=== PATIENT | female | born 1965 | race Caucasian/White ===

== ENCOUNTER 2019-07-30 12:46 | Day surgery (SDC) | payer MEDICAID ==
[~2019-07-30] VITALS: Ht 165.1 cm; Wt 77.3 kg
[2019-07-30 14:37] LABS: INR 1.09 (0.85-1.17); PROTIME 13.6 SECONDS (11.6-15.0)
[2019-07-30 14:39] LABS: ANION GAP 11.7 mmol/L (8-16); CARBON DIOXIDE 26.8 mmol/L (21.0-32.0); CREATININE - SERUM 1.1 mg/dL (0.6-1.3); POTASSIUM - SERUM 3.5 mmol/L (3.5-5.1)
[2019-07-30 14:44] LABS: BASOPHILS 0.3 % (0-2); EOSINOPHILS 3.7 % (0-7); HEMATOCRIT 42.6 % (36.0-48.0); HEMOGLOBIN 13.7 g/dL (12-16); IMMATURE GRANULOCYTES 0.1 % (0-5); LYMPHOCYTES 26.1 % (15-50); MCH 29.3 pg (26.0-34.0); MCHC 32.2 g/dL (31.0-37.0); MEAN PLATELET VOLUME 12.9 fL (7.4-10.4); NEUTROPHILS 64.8 % (40-80); PLATELET COUNT 177 10x3/uL (130-400); RBC 4.68 10x6/uL (4.00-5.40); RDW 14.5 % (11.5-14.5); WBC 8.8 10x3/uL (4.8-10.8)
[2019-07-30 14:45] LABS: BILIRUBIN - TOTAL 0.58 mg/dL (0.2-1.3); MAGNESIUM - SERUM 1.6 mg/dL (1.8-2.4); PROTEIN - SERUM 7.7 g/dL (6.4-8.2)
--- NOTE | 2019-07-30 15:19 | NUR ---
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
[2019-07-30 18:00] VITALS: BP 145/87
--- NOTE | 2019-07-30 18:04 | NUR ---
RECEIVED PATIENT FROM OR, ALERT AND ORIENTED VIA BED. NO C/O PAIN. NO S/S OF ACUTE DISTRESS NOTED. VITALS STABLE. ORIF OF LEFT WRIST, DRESSING C/D/I. DENIES ANY NEEDS AT THIS TIME. CALL LIGHT IN REACH. WILL CONTINUE TO MONITOR.
--- NOTE | 2019-07-30 19:37 | NUR ---
UP IN BED WITH TV ON, ABLE TO VOICE ALL NEEDS. IV TO RIGHT AC IS INFUSING PER ORDERS. DENIES PAIN AT THIS TIME. WILL NOTE ANY CHANGE.
[2019-07-30] MEDS ORDERED: LISINOPRIL10 MG PO (19:50)
[2019-07-30] MEDS ORDERED: LEVOTHYROXINE100 MCG PO (19:51)
[2019-07-30] MEDS ORDERED: METOPROLOL TART50 MG PO (19:51)
[2019-07-30] MEDS ORDERED: LIPITOR20 MG PO (19:51)
[2019-07-30] MEDS ORDERED: HYDROCODON-ACE1 EA10 PO (19:52)
[2019-07-30] MEDS ORDERED: ZOLOFT100 MG PO (19:53)
[2019-07-30] MEDS ORDERED: XANAX1 MG PO (19:53)
[2019-07-30 20:25] VITALS: BP 133/78
[2019-07-30 23:07] VITALS: BP 133/78; BMI 28.3
[2019-07-31 00:20] VITALS: BP 141/67
--- NOTE | 2019-07-31 02:18 | NUR ---
COMPLAINTS OF PAIN TO WRIST, MEDICATION GIVEN PER ORDERS. WILL NOTE ANY CHANGE.
[2019-07-31 03:56] VITALS: BP 158/74
[2019-07-31] MEDS ORDERED: PERCOCET 10-321 EAC1 PO (08:00)
[2019-07-31 08:39] VITALS: BP 165/896
--- NOTE | 2019-07-31 09:06 | NUR ---
PATIENT RECIEVED FROM PREVIOUS SHIFT RESTING IN BED, SLING INTACT TO LEFT ARM. NORCO GIVEN FOR PAIN. IV REMOVED WITH NO REDENSS OR EDEMA AT SITE.
[2019-07-31 09:08] VITALS: Ht 165.1 cm; Wt 77.3 kg
--- NOTE | 2019-07-31 11:16 | NUR ---
DISCHARGE INSTRUCTIONS GIVEN WITH PATIENT VOICING UNDERSTANDING. PATIENT TAKEN BY WHEELCHAIR TO PRIVATE CAR.
--- NOTE | 2019-08-01 08:37 | OP ---
PATIENT NAME: TRUDY JIMENEZ MEDICAL RECORD: [id number] :63 LOCATION:[id number] ADMISSION DATE:07/30/19 SURGEON: GASPER ARREDONDO MD DATE OF OPERATION: 07/30/2019 PREOPERATIVE DIAGNOSIS: Displaced left distal radius fracture. POSTOPERATIVE DIAGNOSIS: Displaced left distal radius fracture. PROCEDURE: Open reduction and internal fixation of the displaced distal radius fracture of the left. SURGEON: Gasper Arredondo MD CLOUD PHYSICIST: Kimani Flores SA INTRAOPERATIVE COMPLICATIONS: None. SUMMARY OF PATHOLOGIC FINDINGS: The patient was indeed found to have a displaced distal radius fracture with a small intra-articular component. IMPLANTS USED: [place] VariAx 2 volar radial plate. OPERATIVE SUMMARY IN DETAIL: After obtaining the appropriate preoperative orthopedic surgery consent as well as anesthetic consultation, evaluation and clearance, placed on the operating table in the supine position. After general laryngeal mask airway was administered, tourniquet was placed about the proximal aspect of the left upper extremity. Left upper extremity was then elevated and exsanguinated, tourniquet was inflated to 350 mmHg. Traction countertraction maneuver was performed to reduce the fracture. This was then examined under fluoroscopy. Pino's volar approach was used extensively in the carpal canal. Transverse carpal ligament was released and using the flexor carpi radialis as a guide, the dissection was carried down to the fracture itself. After full exposure, the fracture was again held in anatomic reduction. Under fluoroscopy, the plate was then put into place and serial and sequential drill and fill screw method using combination of both compression and locking screws, this was again under fluoroscopy. Final radiographs were taken in AP and lateral planes and submitted for radiologist review. The wound was then copiously irrigated and closed with 2-0 Vicryl followed by 4-0 Prolene in a running fashion by Kimani Flores. Sterile dressings were applied. Tourniquet was deflated. Volar splint was applied. The patient was awakened and taken to the recovery room in stable condition. All final needle and sponge counts were correct. TRANSINT:[id number] Voice Confirmation ID: [id number] DOCUMENT ID: [id number] OPERATIVE REPORT [id number] TRUDY JIMENEZ GASPER GILLILAND MD at 0837 CC: [id number] DICTATION DATE: 07/31/19 1342 OVERHEAD DISTRIBUTION ENGINEER: 07/31/19 2242 DIS IN 07/31/19 [facility] [address] [facility] [place]
== END 2019-07-31 11:18 | disposition home or self-care (01) ==
LOC: OBSVTIME → D.ER 12:46 → D.OPS 12:46 → EDSTATUS 15:00 → D.ER 17:03 → OBSVTIME 17:03 → D.MS 17:03 → D.OPS 07-31 11:18 → D.MS 07-31 11:18
PROVIDERS: Emergency Medicine; ATTEND Orthopaedic Surgery
DX: S52.92XA Unspecified fracture of left forearm, initial encounter for closed fracture (principal); W10.9XXA Fall (on) (from) unspecified stairs and steps, initial encounter; I10 Essential (primary) hypertension